=== PATIENT | male | born 1960 | race Caucasian/White ===

== ENCOUNTER 2023-08-22 17:02 | Emergency (ER) | payer BC ==
[2023-08-22] MEDS ORDERED: Lidocaine 1% w/Epinephrine 1:100K 20 ML VIAL ONE (17:23)
[2023-08-22] MEDS ORDERED: Bacitracin 1 PK ONE (17:32)
[2023-08-22] MEDS ORDERED: Boostrix 0.5 ML (Tdap) VIAL (>/=7 yrs of age) ONE (17:32)
[2023-08-22] MEDS ORDERED: Cephalexin 500 MG CAP ONE (19:20)
== END 2023-08-22 19:39 | disposition home or self-care (01) ==
LOC: MADERS 17:02
DX: S81.012A Laceration without foreign body, left knee, initial encounter (principal); Z79.84 Long term (current) use of oral hypoglycemic drugs; Z79.899 Other long term (current) drug therapy; W29.8XXA Contact with other powered hand tools and household machinery, initial encounter
CPT/HCPCS: 12004; 90471; 90715

== ENCOUNTER 2025-09-28 12:54 | Outpatient (CLI) | payer OTHER | END 2025-09-28 12:55 | disposition home or self-care (01) | LOC: MADRAD 12:54 | PROVIDERS: ATTEND Nurse Practitioner Family | DX: S69.91XA Unspecified injury of right wrist, hand and finger(s), initial encounter (principal); M25.531 Pain in right wrist; M19.031 Primary osteoarthritis, right wrist; S63.501A Unspecified sprain of right wrist, initial encounter ==